=== PATIENT | female | born 1985 | race African-American/Black ===

== ENCOUNTER 2019-05-13 14:32 | Emergency (ER) | payer MEDICAID ==
[~2019-05-13] VITALS: Ht 149.9 cm; Wt 63.6 kg
[2019-05-13 14:55] VITALS: BP 116/77
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
[2019-05-13] MEDS: IBUPROFEN 200 MG TABLET. PO ONE (15:21)
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
[2019-05-13] MEDS ORDERED: IBUP-1007 PO (16:33)
== END 2019-05-13 16:42 | disposition home or self-care (01) ==
LOC: ER 14:32
DX: S09.90XA Unspecified injury of head, initial encounter (principal); Y04.0XXA Assault by unarmed brawl or fight, initial encounter; Y93.89 Activity, other specified; Y92.89 Other specified places as the place of occurrence of the external cause; Y99.8 Other external cause status
CPT/HCPCS: 70450; 72125; 81025; 99284-25

== ENCOUNTER 2019-08-31 11:40 | Emergency (ER) | payer MEDICAID ==
[~2019-08-31] VITALS: Ht 149.9 cm; Wt 61.0 kg
[~2019-08-31 11:40] MED LIST: IBUP-1007 PO
[2019-08-31 11:43] VITALS: BP 136/78
[2019-08-31] MEDS ORDERED: KETOROLAC 60 MG/2 ML VIAL. IM ONE (12:00)
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
[2019-08-31] MEDS ORDERED: NAPR-514 PO (12:37)
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
== END 2019-08-31 13:05 | disposition home or self-care (01) ==
LOC: ER 11:40
DX: S20.212A Contusion of left front wall of thorax, initial encounter (principal); G40.909 Epilepsy, unspecified, not intractable, without status epilepticus; Y08.89XA Assault by other specified means, initial encounter; Y93.89 Activity, other specified; Y92.89 Other specified places as the place of occurrence of the external cause; Y99.8 Other external cause status
CPT/HCPCS: 71100; 81025; 96372; 99283; J1885